=== PATIENT | male | born 1955 | race Caucasian/White ===

== ENCOUNTER → 2019-11-27 | Outpatient (CLI) | payer OTHER | LOC: MRI 11:32 | DX: M51.86 Other intervertebral disc disorders, lumbar region (principal); G89.29 Other chronic pain; M25.78 Osteophyte, vertebrae; M48.061 Spinal stenosis, lumbar region without neurogenic claudication ==

== ENCOUNTER → 2019-12-29 | Outpatient (CLI) | payer OTHER ==
[~2019-12-29] MED LIST: AMLODIPINE BESY10 MG PO; ARTHRITIS PAIN650 M3 PO; COZAAR 25 MG TA25 M1 PO; HYDROXYZINE HCL25 M2 PO; NEURONTIN300 MG PO; OXYCODONE HCL10 MG PO; PEPCID AC20 MG PO; SEROQUEL 25 MG25 MG PO; STOOL SOFTENER250 MG PO; TIZANIDINE HCL4 M1 PO
== END ==
LOC: LAB 14:05
DX: Z01.812 Encounter for preprocedural laboratory examination (principal); Z20.828 Contact with and (suspected) exposure to other viral communicable diseases; R05 Cough; R06.02 Shortness of breath; J02.9 Acute pharyngitis, unspecified; R43.8 Other disturbances of smell and taste

== ENCOUNTER 2020-01-01 07:51 | Inpatient (IN) | payer OTHER ==
[2019-12-29 13:06] LABS: URINE BILIRUBIN NEGATIVE (Negative); URINE BLOOD NEGATIVE (Negative); URINE CLARITY CLEAR; URINE COLOR YELLOW; URINE GLUCOSE-RANDOM* NEGATIVE (Negative); URINE KETONES NEGATIVE (Negative); URINE LEUKOCYTES-REFLEX NEGATIVE (Negative); URINE NITRITE-REFLEX NEGATIVE (Negative); URINE PROTEIN (DIPSTICK) NEGATIVE (Negative); URINE SPECIFIC GRAVITY <= 1.005 (1.005-1.035); URINE UROBILINOGEN 0.2 E.U./dl (0.2-1.0)
[2019-12-29 13:07] LABS: BASOPHILS 0.9 % (0.0-2.0); HEMATOCRIT 43.1 % (42.0-52.0); HEMOGLOBIN 14.4 gm/dL (14.0-18.0); LYMPHOCYTES 22.1 % (24.0-44.0); MCH 32.6 pg (26.0-34.0); MCHC 33.5 g/dL (28.0-37.0); MCV 97.3 fL (80.0-100.0); MONOCYTES 7.3 % (1.0-8.0); PLATELET COUNT 211 thou/uL (150-400); POLYS 68.7 % (36.0-66.0); RBC 4.42 mil/uL (4.50-6.00); RDW 15.2 % (10.5-14.5); WBC 7.3 thou/uL (4.0-11.0)
[2019-12-29 13:19] LABS: ALBUMIN 4.2 g/dL (3.4-5.0); CALCIUM 8.5 mg/dL (8.5-10.1); MAGNESIUM 1.9 mg/dL (1.8-2.4); POTASSIUM 4.3 mmol/L (3.5-5.1); TOTAL BILIRUBIN 0.5 mg/dL (0.2-1.0)
[2019-12-29 13:20] LABS: APTT 31.9 Seconds (24.5-32.8)
[~2020-01-01] VITALS: Ht 182.9 cm; Wt 115.7 kg
[2020-01-08] MEDS ORDERED: AMOXICILLIN 50500 M1 PO (15:07)
--- NOTE | 2020-01-08 15:14 | NUR ---
CALLED PT TO UPDATE HIS HISTORY D/T POSTPONED SURGERY. PT STATES HE IS CURRENTLY TAKING A ROUND OF AMOXICILLIN FOR INFECTED TOOTH WHICH WAS PULLED LAST WEEK. STATES HE WILL BE DONE WITH THE ANTIBIOTIC PRIOR TO SURGERY. LEFT MESSAGE WITH DR. JAEGER'S MA PHONE REGARDING THIS.
[2020-01-14 07:41] VITALS: BP 153/104
[2020-01-14 08:43] VITALS: BP 155/68
--- NOTE | 2020-01-14 19:05 | NUR ---
PATIENT ADMITTED FROM OR WITH LUMBAR L5-S1 LAMINECTOMY REDO. PATIENT ALERT AND ORIENTED, C/O LOTS OF PAIN. BENCH HAND STARTED WITH DILAUDID. MÁRQUEZ CATHETER IN PLACE WITH LIGHT YELLOW URINE NOTED. LEFT FOREARM IV IN PLACE. ADMISSION DONE AND REPORT GIVEN TO STACEY/RN.
[2020-01-14 19:50] VITALS: BP 160/101
[2020-01-14 21:24] VITALS: BP 134/72
--- NOTE | 2020-01-14 23:37 | NUR ---
1900 ASSUMED CARE OF PT AFTER BEDSIDE REPORT. 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
[2020-01-15 00:30] VITALS: BP 141/82
[2020-01-15 04:14] VITALS: BP 125/72
[2020-01-15 06:04] LABS: ABSOLUTE NEUTROPHILS 8.7 thou/uL (1.4-8.2); BASOPHILS 0.1 % (0.0-2.0); HEMATOCRIT 36.9 % (42.0-52.0); HEMOGLOBIN 12.4 gm/dL (14.0-18.0); LYMPHOCYTES 10.2 % (24.0-44.0); MCH 33.5 pg (26.0-34.0); MCHC 33.7 g/dL (28.0-37.0); MCV 99.4 fL (80.0-100.0); MONOCYTES 10.2 % (1.0-8.0); PLATELET COUNT 165 thou/uL (150-400); POLYS 79.5 % (36.0-66.0); RBC 3.71 mil/uL (4.50-6.00)
[2020-01-15 06:13] LABS: CALCIUM 8.4 mg/dL (8.5-10.1); CREATININE 0.9 mg/dL (0.7-1.3); POTASSIUM 4.3 mmol/L (3.5-5.1)
[2020-01-15 07:00] VITALS: BP 133/88
--- NOTE | 2020-01-15 09:34 | NUR ---
ASSESSMENT: CM REVIEWED CHART AND MET WITH PATIENT AT THE BEDSIDE. PT IS ALERT AND ORIENTED X4. PT REPORTS LIVING IN A HOUSE WITH HIS . PT REPORTS HAVING 3 STEPS TO ENTER THE HOME WITH A HANDRAIL. PT REPORTS NO STEPS ONCE INSIDE. PT STATES THAT HE HAS A CANE AND A WALKER AT HOME TO USE NEEDED BUT NORMALLY AMBULATES INDEPENDENTLY. PT STATES HE HAS HAD HH IN THE PAST BUT UNSURE THE AGENCY. PT HAS NOT BEEN TO A SNF. CM DISCUSSED ROLE. PT DOES NOT ANTICIPATE HAVING ANY NEEDS. PT IS TO WORK WITH THERAPY TODAY AND CM WILL CONTINUE TO FOLLOW TO ASSIST NEEDED.
[2020-01-15 15:23] VITALS: BP 151/92
--- NOTE | 2020-01-15 17:02 | NUR ---
Assumed care of pt. at 0700. Pt. complained of severe pain all throughout the morning. Physician notified, orders given, medication given via orders. Pt. voices that he wants to go home, but does not feel comfortable with his pain control. Fall precautions in place.
[2020-01-15 18:49] VITALS: BP 147/77
[2020-01-16 04:09] VITALS: BP 167/118
--- NOTE | 2020-01-16 05:26 | NUR ---
PT WAS ANGRY,IRRITABLE ABD AGITATED AT START OF SHIFT.PT COMPLAINED THAT HE DID NOT EAT DINNER LAST NIGHT,HE COMPLAINED THAT ONE HIS IV WAS SUPPOSED TO BE PULLED OUT HOURS BEFORE THE SHIFT STARTED DUE TO IT CLOGGING OFF BUT IT WAS NOT DONE.PT COMPLAINED THAT HIS PAIN IS NOT BEING CONTROLLED WITH THE HIS CURRENT PAIN MED.PT PER REPORT,PT'S PAIN MED WAS CHANGED PER HIS REQUEST DUE TO HIS ALLERGY TO THE MED.DOMESTIC MAID ON DUTY NOTIFIED ABOUT PT'S PAIN NOT BEING MANAGED,MED INCREASED TO MATCH WITH THE DOSAGE HE GETS AT HOME.THIS NURSE PROVIDED HIM WITH THE BOX LUNCH BUT HE ENDED UP NOT EATING IT.WHEN THIS NURSE WENT INTO HIS ROOM TO DC THE IV THAT WAS CLOGGED OFF,HE ASKED HER TO COME BACK.PT LATER PUT HIS LIGHT ON MINUTES LATER AND COMPLAINED THAT HIS REQUEST HAS NOT BEEN MET.IV REMOEVED AND REPLACED WITH ANOTHER ONE.PT RESTING ON HIS BED AT THIS TIME.CALL LIGHT WITHIN REACH. REMOVAL HAS NOT BEEN MET
[2020-01-16 07:40] VITALS: BP 144/91
[2020-01-16 09:01] LABS: ABSOLUTE NEUTROPHILS 8.4 thou/uL (1.4-8.2); BASOPHILS 0.7 % (0.0-2.0); EOSINOPHILS 0.9 % (0.0-3.0); HEMATOCRIT 42.6 % (42.0-52.0); LYMPHOCYTES 14.6 % (24.0-44.0); MCH 32.4 pg (26.0-34.0); MCHC 32.8 g/dL (28.0-37.0); MCV 98.6 fL (80.0-100.0); MONOCYTES 11.2 % (1.0-8.0); PLATELET COUNT 184 thou/uL (150-400); POLYS 72.6 % (36.0-66.0); RBC 4.32 mil/uL (4.50-6.00); RDW 15.1 % (10.5-14.5); WBC 11.6 thou/uL (4.0-11.0)
[2020-01-16 09:12] LABS: POTASSIUM 4.1 mmol/L (3.5-5.1)
--- NOTE | 2020-01-16 11:50 | O ---
[facility] [address] [place] [address] OPERATIVE REPORT Name: MICHAEL FOSTER Room #: 441-P [facility] IN M.R.#: [id number] Admission: 01/14/20 Attend Phys: Miguel Tello MD Discharge: Date of : 59 Report #: [id number] THIS REPORT FOR: cc: CHIARA - Family physician unknown CHIARA - Family physician unknown Miguel Tello MD ~ CC: CHIARA unknown Miguel SHEPHERD DATE OF SERVICE: 01/14/2020 PREOPERATIVE DIAGNOSES: L5-S1 severe neural foraminal stenosis, previous L3-S1 decompression, previous L3-L5 fusion with complaints of severe low back pain and symptoms compatible with L5 radiculopathy. 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 PROCEDURES: Posterior instrumentation, L5-S1; posterolateral fusion, L5-S1 with autograft and allograft; L5 bilateral laminectomy, partial facetectomy, and neural foraminotomy redo; redo bilateral laminectomy with partial facetectomy and neural foraminotomy, S1. So, both the L5 and the S1 levels were redo laminectomies and this was done for neural foraminal stenosis and for purposes originally for a TLIF. SURGEON: Miguel Tello MD WASHTUB WORKER SURGEON: MINERVA Diggs ANESTHETIC: General via endotracheal tube. INDICATIONS: The patient has had intractable back pain. He did have some L5 weakness. He is noted to have severe neural foraminal stenosis at L5-S1. The patient is proved refractory to all forms of multimodality conservative management. He is requesting that we proceed with operative intervention. He understands the risks of surgery to be , DVT, pulmonary embolism, paraplegia, loss of bowel and bladder function, loss of sexual function, possibility of bleeding, bleeding requiring transfusion, transfusion attendant risks of AIDS and hepatitis infection, instability, the need for revision, prolonged hospital stay, dural leak, spinal headache, pseudarthrosis and again he requested we proceed. DESCRIPTION OF PROCEDURE: The patient was brought to the operating room and administered general anesthesia via endotracheal tube. Lower extremities were [address] [address] OPERATIVE REPORT Name: MICHAEL FOSTER Room #: 441-P [facility] IN M.R.#: [id number] Admission: 01/14/20 Attend Phys: Miguel Tello MD Discharge: Date of : 59 Report #: [id number] treated with CLEMENTE hose and intermittent compression stockings. He was positioned after receiving 3 grams of Ancef on the Silas table in the prone position with all bony prominences padded appropriately. Care was taken to ensure the shoulders not abducted more than 90 degrees, the elbows flexed more than 90 degrees. There was no undue pressure on the cubital or carpal canals. The area of the anterior superior iliac spine was well padded to protect the lateral femoral cutaneous nerve. Hips and knees were well padded and there was no pressure on the dorsum of the feet. The patient's low back was defatted with alcohol, visualized under fluoroscopy and the pedicles of L4, L5, and S1 were marked on the patient's back for surgical reference. We carefully dissected through the skin that had been sterilely prepped and draped and infiltrated with 0.5% Marcaine down through scar to the level of the deep fascia and then a careful dissection continued as there was no midline protection of the dura from L3 to the sacrum. The patient had been previously decompressed. Dissection was somewhat tedious also due to the patient's size of 270 pounds. We continued the dissection and eventually exposed the bony margins of the previous decompression from L4-S1. We then affixed a clamp to the small remnant of S1 and placed it perpendicular to the floor, and this gave us our levels and relative pedicle directions. With this now known, we were able to decorticate at the base of the transverse process of L5 and at the sacral ala, and insert a pedicle probe and drive it to a depth of 40 mm; withdrew it, palpated the hole with a ball tip probe to ensure cortical integrity. With the cortical integrity proven, we were then able to insert bone wax and a metallic marker. Fluoroscopy was then brought in the field, and we checked a Joseph and a lateral view, and found the pedicle markers to be in superb position. With the markers in optimal position, we sequentially removed each marker and tapped the hole. We then palpated the hole to again ensure cortical integrity and when that was ensured, we decorticated posterolaterally and used the bone putty that was required by the insurance company. The bone putty was placed over the transverse processes and sacral ala in posterolateral fusion fashion. We then continued on the opposite side after inserting the screws; measured cutting and contoured rods; and leaving the rods unlocked at one end. We moved to the opposite side and performed exactly the same procedure. We removed the markers, tapped the holes, palpated the holes to ensure cortical integrity; decorticated posterolaterally and performed a posterolateral fusion with bone putty required by the insurance company. With bone putty in place, we were able to then insert the screws; measured, cut, and contoured the rods; locked them into place with the locking caps, unlocked at one end to allow it to slide for the TLIF. With the instrumentation intact, we then brought in fluoroscopy and checked in AP and lateral fluoroscopy views, and it showed excellent position of our pedicle screws instrumentation. Spine being in optimal position and locked now at L5-S1, we were able to perform a redo decompression. It was considerably scarred, but we used redo technique to perform a wide decompressive laminectomy on the right and performed a total laminectomy on that side, intending to place a cage. We then started to trace out the nerve roots in that stage of the decompression and noted that the S1 nerve root was not in its normal place. We [facility] [address] [place] [address] OPERATIVE REPORT Name: MICHAEL FOSTER Room #: 441-P ADM IN M.R.#: [id number] Admission: 01/14/20 Attend Phys: Miguel Tello MD Discharge: Date of : 59 Report #: [id number] continued to decompress the neural foramen at L5-S1 and found a large conjoined nerve root with the L5 and S1 nerve roots appearing to exit from that inner foramen. It completely enveloped the disk space both above and below significant distances. There was absolutely no way possible to mobilize safely for the exposure we needed for a TLIF cage of the conjoined nerve root at L5-S1. We turned our attention to the opposite side and found exactly the same finding. So, after we performed a redo decompression including partial facetectomy and neural foraminotomy at L5 and S1, both right and left, we had no choice but to abort the TLIF interbody cage placement, as there was no corridor for safe insertion. We drilled out the facet that remained on the left and packed it with the patient's autologous bone to effect a posterior fusion. We also augmented posterolaterally with the patient's autologous bone. Finally, we placed pledgets of thrombin-soaked Gelfoam over the spinal canal, obtained meticulous hemostasis, applied the transverse connector and with a transverse connector in place, we then tightened all screws and caps to the appropriate tightness with the torque wrench. With instrumentation complete and the decompression complete, all nerve roots probing completely free, we had copiously irrigated, as I mentioned with a liter of antibiotic-containing solution. We obtained meticulous hemostasis and closed the deep fascial layer with 0 Ethibond in [id number] interrupted fashion, deep subQ with 0 Vicryl, superficial subQ with 2-0 Vicryl, and skin with stainless steel herman. He was dressed with Xeroform, sterile dressing, sponges, and a bioclusive. Final blood loss was 100 mL. There was no specimen. The patient tolerated the procedure well. He was physiologically stable throughout and there were no misadventures. The patient is being returned to the recovery room for closer neurovascular observation, continue prophylactic antibiotic and serial neurovascular exam. <ELECTRONICALLY SIGNED> By: Miguel Tello MD 01/16/20 [id number] Miguel Tello MD /nt
--- NOTE | 2020-01-16 13:23 | NUR ---
Assumed care of pt at 0700. Pt a&ox4. C/o back pain. PRN pain meds administered. Pain scripts given by Dr. Tello's PA. Dressing changed. Call light within reach. Pt ambulates with steady gait.
[2020-01-16 13:29] VITALS: BP 144/91
--- NOTE | 2020-01-16 14:07 | NUR ---
ON-GOING ASSESSMENT: CM REVIEWED CHART. PATIENT HAS ORDERS TO DISCHARGE HOME TODAY WITH NO NEEDS FROM CM. CASE CLOSED.
== END 2020-01-16 14:32 | disposition home or self-care (01) | DRG 460 ==
LOC: PRE 07:51 → TBA 01-14 06:10 → 4S 01-14 06:10 → PRE 01-14 10:29 → 4S 01-14 15:38 → PRE 01-14 16:59 → 4S 01-16 14:32
PROVIDERS: Nurse Practitioner
DX: M48.07 Spinal stenosis, lumbosacral region (principal); M54.17 Radiculopathy, lumbosacral region; G89.29 Other chronic pain; M54.9 Dorsalgia, unspecified; I10 Essential (primary) hypertension; F32.9 Major depressive disorder, single episode, unspecified; F41.9 Anxiety disorder, unspecified; K21.9 Gastro-esophageal reflux disease without esophagitis; Z96.651 Presence of right artificial knee joint; F12.90 Cannabis use, unspecified, uncomplicated; K59.09 Other constipation; Z88.6 Allergy status to analgesic agent; Z86.14 Personal history of Methicillin resistant Staphylococcus aureus infection; Z87.891 Personal history of nicotine dependence
CPT/HCPCS: 10102; 50010; 50101; 50402; 50850; 50923; 51878; 56524; 56529; 58247; 58248; 58258; 58275; 5828; 58283; 58331; 62110; 62900; 70005

== ENCOUNTER → 2020-01-09 | Outpatient (CLI) | payer OTHER ==
[~2020-01-09] MED LIST changes: +AMOXICILLIN 50500 M1 PO
== END ==
LOC: LAB 11:35
DX: Z01.812 Encounter for preprocedural laboratory examination (principal); Z20.828 Contact with and (suspected) exposure to other viral communicable diseases

== ENCOUNTER → 2020-01-26 | Outpatient (CLI) | payer OTHER | LOC: RAD 11:43 | DX: M41.86 Other forms of scoliosis, lumbar region (principal); Z98.890 Other specified postprocedural states ==

== ENCOUNTER → 2020-02-23 | Outpatient (CLI) | payer OTHER | LOC: RAD 12:01 | DX: M48.061 Spinal stenosis, lumbar region without neurogenic claudication (principal); Z98.890 Other specified postprocedural states ==

== ENCOUNTER 2020-03-26 14:25 | Emergency (ER) | payer OTHER ==
[~2020-03-26] VITALS: Ht 182.9 cm; Wt 117.9 kg
[~2020-03-26 14:25] MED LIST changes: -HYDROCODON-ACE1 EAC7 PO
[2020-03-26] MEDS ORDERED: HYDROCODON-ACE1 EAC7 PO (16:12)
[2020-03-26 16:44] VITALS: BP 190/95
== END 2020-03-26 16:46 | disposition home or self-care (01) ==
LOC: ER 14:25
DX: G89.28 Other chronic postprocedural pain (principal); M54.5 Low back pain; I10 Essential (primary) hypertension; F32.9 Major depressive disorder, single episode, unspecified; F41.9 Anxiety disorder, unspecified; K21.9 Gastro-esophageal reflux disease without esophagitis; Z98.890 Other specified postprocedural states; Z96.651 Presence of right artificial knee joint; Z86.14 Personal history of Methicillin resistant Staphylococcus aureus infection; Z79.899 Other long term (current) drug therapy; Z88.5 Allergy status to narcotic agent; Z87.891 Personal history of nicotine dependence

== ENCOUNTER → 2020-03-26 | Outpatient (CLI) | payer OTHER ==
[~2020-03-26] MED LIST changes: +HYDROCODON-ACE1 EAC7 PO
== END ==
LOC: RAD 13:16
PROVIDERS: ATTEND Physician Assistant
DX: M43.27 Fusion of spine, lumbosacral region (principal); M47.816 Spondylosis without myelopathy or radiculopathy, lumbar region; M41.9 Scoliosis, unspecified; Z98.890 Other specified postprocedural states